=== PATIENT | male | born 1965 | race Caucasian/White ===

== ENCOUNTER 2018-04-25 08:16 | Outpatient (RCR) | payer BC | END 2018-04-28 15:10 | disposition home or self-care (01) | PROVIDERS: ATTEND Orthopaedic Surgery Orthopaedic Surgery of the Spine | DX: M54.6 Pain in thoracic spine (principal) ==

== ENCOUNTER 2020-07-07 06:25 | Emergency (ER) | payer BC ==
[~2020-07-07] VITALS: Ht 182.8 cm; Wt 99.7 kg
[2020-07-07] MEDS ORDERED: KETOROLAC 60 MG/2 ML VIAL IM STA (06:40)
[2020-07-07] MEDS ORDERED: HYDROcodone/APAP 7.5 MG/325 MG (LORTAB, LORCET PLUS) TABLET PO STA (06:40)
--- NOTE | 2020-07-07 06:55 | ED Hip Pain/Injury ---
General Chief Complaint: Hip/Pelvic Problems Stated Complaint: L HIP PAIN Nursing Triage Note: C/O HIP PAIN THAT STARTED YESTERDAY MORNING. STATES HAS TAKEN EVERYTHING HE COULD AT HOME TO HELP THE PAIN INCLUDING ICE BUT PAIN IS STILL 10/10. PATIENT IS ALERT AND ORIENTED X4, CALL LIGHT IN REACH, VERBALIZES UNDERSTANDING OF ITS USE AND TO CALL FOR ANY NEEDS. Source: patient Exam Limitations: no limitations History of Present Illness Date Seen by Provider: Jul 07, 2020 Time Seen by Provider: 06:37 Initial Comments Here with acute onset of left hip pain that started yesterday morning. He states he was fine the night before but woke up with the rather significant pain to the left hip. He has not done anything that would cause injury. He has never had anything like this before. 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 Did try Naprosyn yesterday as well as Flexeril last night and neither have provided any relief. States it is rather significant now on he is only able to hobble on the leg due to pain. Denies sensation problems or weakness. Denies bowel or bladder incontinence. Pain radiates from the hip to the buttock and down to the knee. Timing/Duration: constant, yesterday Severity: moderate Location: hip (L) Method of Injury: unknown Modifying Factors: Improves With Immobilization; Worse With Movement Associated Symptoms: No fever, No groin pain, No lumps, No muscle aches; pain radiating to knees, trouble walking Allergies and Home Medications Allergies Coded Allergies: No Known Drug Allergies (Unverified , 07/07/20) Patient Home Medication List Home Medication List Reviewed: Yes Review of Systems Constitutional: see HPI; No chills, No fever Respiratory: no symptoms reported Cardiovascular: no symptoms reported Gastrointestinal: no symptoms reported Genitourinary: no symptoms reported Musculoskeletal: see HPI, joint pain; No muscle weakness Skin: no symptoms reported Past Bmhpuuy-Kpyyox-Rodtid Hx Past Med/Social Hx: Reviewed Nursing Past Med/Soc Hx Patient Social History Alcohol Use: Denies Use Recreational Drug Use: No Recent Foreign Travel: No Contact w/Someone Who Travel: No Recent Infectious Disease Expo: No Physical Abuse: No Sexual Abuse: No Mistreated: No Fear: No Past Medical History Surgeries: Yes (r knee, l shoulder) Orthopedic, Tonsillectomy Respiratory: No Cardiac: Yes High Cholesterol Neurological: No Reproductive Disorders: Yes (Low testosterone) Genitourinary: No Gastrointestinal: No Musculoskeletal: No Endocrine: No Cancer: No Psychosocial: Yes Sleep Difficulties Integumentary: No Blood Disorders: No Adverse Reaction/Blood Tranf: No Family Medical History Reviewed Nursing Family Hx No Pertinent Family Hx Physical Exam Vital Signs Vital Signs - First Documented 07/07/20 06:30 Temp 35.5 Pulse 77 Resp 18 B/P (MAP) 165/101 (122) Pulse Ox 96 Capillary Refill : Less Than 3 Seconds Height, Weight, BMI Height: 6'" Weight: 210lbs. oz. [id number]; 29.00 BMI Method:Stated General Appearance: No Apparent Distress, WD/WN Cardiovascular: Regular Rate, Rhythm, No Murmur Respiratory: Lungs Clear, Normal Breath Sounds Extremity: Pelvis Stable, Other (Tender to the left hip lateral aspect. No pain or sensation loss distally. Mild pain increased with range of motion of the left hip with internal and external rotation.) Neurologic/Psychiatric: Alert, Oriented x3 Skin: Normal Color, Warm/Dry Progress/Results/Core Measures Results/Orders My Orders Orders - CARLEEN KENNEY MD Hydrocodone/Apap 7.5/325 Tab (Lortab 7. (07/07/20 06:40) Ketorolac Injection (Toradol Injection) (07/07/20 06:40) Pelvis With Left Hip 2-3 Views (07/07/20 06:40) Vital Signs/I&O 07/07/20 06:30 Temp 35.5 Pulse 77 Resp 18 B/P (MAP) 165/101 (122) Pulse Ox 96 Blood Pressure Mean: 122 Progress Progress Note : Progress Note Seen and evaluated. X-ray left hip and pelvis ordered. Toradol 60 mg IM and Lortab 7.5 mg p.o. ordered. Monitor patient. 0749: Pain not much different at this point. X-ray results noted and reviewed with the patient. We will initiate outpatient steroids as well as continue pain control. We will follow-u p with his primary care provider for further evaluation as needed. Discharged home with return precautions. Patient verbalized understanding of instructions and agreement with plan. Diagnostic Imaging Diagonstic Imaging: Xray Plain Films/CT/US/NM/MRI: pelvis, hip Comments [facility]. [place], [place] NAME: ACACIA NAM JR [facility] REC#: [id number] PT STATUS: REG ER : 1965 PHYSICIAN: CARLEEN KENNEY MD ADMIT DATE: 07/07/20/ER Draft Date of Exam:07/07/20 PELVIS WITH LEFT HIP 2-3 VIEWS EXAM: PELVIS WITH LEFT HIP 2-3 VIEWS INDICATION: Left hip and pelvic pain. COMPARISON: None. FINDINGS: No fracture or malalignment. 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 No suspicious osteoblastic or lytic lesions. Visualized soft tissues are unremarkable. IMPRESSION: 1. 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 2. No acute radiographic findings. Dictated on workstation # [id number] Dict: 07/07/2018 Trans: 07/07/20 0731 [facility] [id number] Interpreted by: JAKE PETTIT MD Electronically signed by: Departure Impression Primary Impression: Left hip pain Disposition: 01 HOME, SELF-CARE Condition: Stable Departure-Patient Inst. Decision time for Depature: 07:50 Referrals: VALE RUEDA MD (PCP) Primary Care Physician Patient Instructions: Hip Pain (DC) Add. Discharge Instructions: All discharge instructions reviewed with patient and/or family. Voiced understanding. Take medications as directed. You may take Naprosyn [id number] 2 tablets twice daily for the next 3 to 4 days and then as needed. Make sure you take that with food or water. If you are not taking the prescribed pain medicine (hydrocodone-containing compound) then you may take Tylenol/acetaminophen 1000 mg every 8 hours as needed for pain. Do not take both at the same time as they both have acetaminophen in them. Return for worse pain, fever, weakness, problems with walking or going to the bathroom or other concerns as needed. Follow-up with your doctor this week for recheck and further evaluation as needed. Scripts Hydrocodone/Acetaminophen (Hydrocodone-Acetamin 7.5-325) 1 Each Tablet 1 EACH PO Q6H PRN for PAIN-MODERATE (5-7) for 3 Days, #8 TAB 0 Refills Prov: CARLEEN KENNEY MD 07/07/20 Prednisone (Prednisone) 20 Mg Tab 40 MG PO DAILY, #14 TAB 0 Refills Prov: CARLEEN KENNEY MD 07/07/20 CARLEEN KENNEY MD Jul 07, 2020 06:55
--- NOTE | 2020-07-07 07:31 | Diagnostic Imaging Report ---
EXAM: PELVIS WITH LEFT HIP 2-3 VIEWS INDICATION: Left hip and pelvic pain. COMPARISON: None. FINDINGS: No fracture or malalignment. 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 No suspicious osteoblastic or lytic lesions. Visualized soft tissues are unremarkable. IMPRESSION: 1. 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 2. No acute radiographic findings. Dictated by: Dictated on workstation # [id number]
[2020-07-07] MEDS ORDERED: HYDR-3817 PO (07:54)
[2020-07-07] MEDS ORDERED: PRD20T PO (07:54)
[2020-07-07 07:59] VITALS: BP 142/90
== END 2020-07-07 07:59 | disposition home or self-care (01) ==
LOC: EDUNIT# 06:25 → ER 06:27
DX: M25.552 Pain in left hip (principal)